=== PATIENT | male | born 1950 | race African-American/Black ===

== ENCOUNTER 2024-04-16 09:07 | Day surgery (SDC) | payer SELFPAY ==
[2024-04-16] MEDS ORDERED: Acetaminophen 500 MG TAB ONE (11:04)
[2024-04-16] MEDS ORDERED: diphenhydrAMINE 25 MG CAP ONE (11:04)
[2024-04-16] MEDS: Acetaminophen 500 MG TAB PO SCH (11:05)
[2024-04-16] MEDS: diphenhydrAMINE 25 MG CAP PO SCH (11:05)
[2024-04-16] MEDS ORDERED: cloNIDine 0.1 MG TAB ONE (15:43)
[2024-04-16] MEDS: cloNIDine 0.1 MG TAB PO SCH (15:44)
[2024-04-16 17:25] VITALS: BP 155/70; TEMP 98.1
== END 2024-04-16 17:33 | disposition home or self-care (01) ==
LOC: ONC/OP 09:07 → EDBD 09:07 → ONC/OP 17:33
PROVIDERS: ATTEND Nurse Practitioner Adult Health
DX: D64.9 Anemia, unspecified (principal); D69.6 Thrombocytopenia, unspecified
CPT/HCPCS: 36430; 86850; 86900; 86901; P9016

== ENCOUNTER 2024-04-28 10:51 | Observation (INO) | payer MEDICARE, OTHER ==
[2024-04-28 12:46] LABS: INR-International Normal Ratio 1.2; Prothrombin Time 14.8 sec (12.0-14.7)
[2024-04-28 12:56] LABS: ALT (SGPT) 12 U/L (8-55); AST (SGOT) 21 U/L (5-34); Albumin 3.5 g/dL (3.4-4.8); Alkaline Phosphatase 63 U/L (40-110); Anion Gap 11 mmol/L (10-20); BUN (Urea Nitrogen) 23 mg/dL (8.4-25.7); Bilirubin, Total 0.8 mg/dL (0.2-1.2); Calc. Creatinine Clearance 0 mL/min (70-130); Calcium 8.4 mg/dL (7.8-10.44); Carbon Dioxide 23 mmol/L (23-31); Chloride 113 mmol/L (98-107); Estimated GFR 50; Globulin 3.3 g/dL (2.4-3.5); Glucose 91 mg/dL (83-110); Potassium 4.2 mmol/L (3.5-5.1); Protein, Total 6.8 g/dL (5.8-8.1); Sodium 143 mmol/L (136-145)
[2024-04-28 13:15] LABS: #Basophils 0.08 10x3/uL (0.0-0.2); %Basophils 0.4 % (0.0-1.0); %Eosinophils 0.8 % (0.0-10.0); %Monocytes 5.1 % (0.0-10.0); %Neutrophils 87.6 % (42.0-75.0); Hematocrit 20.1 % (42.0-52.0); Hemoglobin 6.2 g/dL (14.0-18.0); Mean Corpuscular HGB CONC 30.8 g/dL (32.0-36.0); Mean Corpuscular Volume 93.9 fL (78.0-98.0); Mean Platelet Volume 9.4 fL (7.4-10.4); Platelet Count 1559 10x3/uL (130-400); RBC Distribution Width 23.9 % (11.5-14.5); Red Blood Cell (RBC) Count 2.14 mill/uL (4.70-6.10)
[2024-04-28] MEDS ORDERED: Ondansetron PF 4 MG/2 ML Vial IVP PRN (14:20)
[2024-04-28] MEDS ORDERED: Ondansetron ODT 4 MG TAB PO PRN (14:20)
[2024-04-28] MEDS ORDERED: Lactated Ringer's 1,000 ML IV SCH (14:30)
[2024-04-28 19:20] LABS: Hematocrit 22.1 % (42.0-52.0)
[2024-04-28 19:27] VITALS: BMI 22.3
[2024-04-28] MEDS: Furosemide 20 MG (2 mL) VIAL SLOW IVP SCH (23:00)
[2024-04-28] MEDS: Acetaminophen 325 MG TAB PO PRN (23:00)
[2024-04-28 23:38] LABS: Hematocrit 26.6 % (42.0-52.0)
[2024-04-29 05:02] LABS: Hematocrit 23.6 % (42.0-52.0); Hemoglobin 7.7 g/dL (14.0-18.0); Mean Corpuscular HGB CONC 32.6 g/dL (32.0-36.0); Mean Corpuscular Hemoglobin 29.3 pg (27.0-31.0); Mean Corpuscular Volume 89.7 fL (78.0-98.0); Mean Platelet Volume 8.9 fL (7.4-10.4); Platelet Count 967 10x3/uL (130-400); RBC Distribution Width 21.2 % (11.5-14.5); Red Blood Cell (RBC) Count 2.63 mill/uL (4.70-6.10)
[2024-04-29 05:25] LABS: Anion Gap 13 mmol/L (10-20); BUN (Urea Nitrogen) 21 mg/dL (8.4-25.7); Calc. Creatinine Clearance 42 mL/min (70-130); Calcium 8.1 mg/dL (7.8-10.44); Carbon Dioxide 21 mmol/L (23-31); Chloride 111 mmol/L (98-107); Estimated GFR 45; Glucose 91 mg/dL (83-110); Potassium 3.6 mmol/L (3.5-5.1); Sodium 141 mmol/L (136-145)
[2024-04-29 06:02] LABS: Band 8 % (5-11); Hypochromia SLIGHT = 6-15 cells (100X) (0-5/hpf); Monocytes 12 % (0-10); Neutrophil 80 % (42-75); Plasma Cells 0 % (0-0); Platelet Adequacy Comment Appears Increased; Target Cells SLIGHT = 2-5 cells (100X) (0-1/hpf); Total Cell Count 100
[2024-04-29 12:23] LABS: Hematocrit 28.3 % (42.0-52.0)
[2024-04-29 15:50] VITALS: BP 166/77; TEMP 98
== END 2024-04-29 16:25 | disposition home or self-care (01) ==
LOC: ERS 10:51 → OBS 14:21 → MERGE 14:21 → T4-B 04-29 11:00
PROVIDERS: ADMIT Student in an Organized Health Care Education/Training Program; ATTEND Internal Medicine
DX: C20 Malignant neoplasm of rectum (principal); I12.9 Hypertensive chronic kidney disease with stage 1 through stage 4 chronic kidney disease, or unspecified chronic kidney disease; N18.31 Chronic kidney disease, stage 3a; D63.1 Anemia in chronic kidney disease; C61 Malignant neoplasm of prostate; D75.839 Thrombocytosis, unspecified; D72.829 Elevated white blood cell count, unspecified; D50.0 Iron deficiency anemia secondary to blood loss (chronic); Z90.79 Acquired absence of other genital organ(s); Z98.890 Other specified postprocedural states; Z79.82 Long term (current) use of aspirin; Z79.899 Other long term (current) drug therapy
CPT/HCPCS: 36430; 80048; 80053; 85014 ×2; 85025 ×2; 85610; 86850; 86900; 86901; 86920; 93005; 94760; 96374; 99284; G0378 ×3; J1940; P9016; 36415; 36416

== ENCOUNTER 2024-05-06 09:09 | Day surgery (SDC) | payer OTHER ==
[2024-05-05 14:22] VITALS: BMI 23.0
[2024-05-06] MEDS ORDERED: Midazolam HCl 2 mg/2 ml Vial SLOW IVP SCH (11:30)
[2024-05-06] MEDS ORDERED: Heparin 5,000 UNITS/ML VIAL ONE (12:00)
[2024-05-06] MEDS ORDERED: Bupivacaine 0.25% HCL 30 ML VIAL ONE (12:01)
[2024-05-06] MEDS ORDERED: EPINEPHrine 1 MG/ML VIAL ONE (12:01)
[2024-05-06] MEDS ORDERED: Lidocaine 2% PF 5 ML VIAL ONE (12:01)
[2024-05-06] MEDS ORDERED: Midazolam HCl 2 mg/2 ml Vial ONE (12:12)
[2024-05-06] MEDS ORDERED: PROPOFOL 20 ML ONE (12:15)
[2024-05-06] MEDS ORDERED: Dexamethasone 20 MG/5 ML VIAL ONE (12:15)
[2024-05-06] MEDS ORDERED: Ondansetron PF 4 MG/2 ML Vial ONE (12:15)
[2024-05-06] MEDS ORDERED: fentaNYL PF 100 MCG/2 ML SYRINGE ONE (12:15)
[2024-05-06] MEDS ORDERED: Lidocaine 1% PF 5 ML VIAL ONE (12:15)
[2024-05-06] MEDS ORDERED: CEFAZOLIN 1 GM VIAL ONE ×2 (12:52→12:56)
[2024-05-06] MEDS ORDERED: ePHEDrine Sulfate 50 MG/10 ML VIAL ONE (12:57)
== END 2024-05-06 15:35 | disposition home or self-care (01) ==
LOC: SDC 09:09
PROVIDERS: ATTEND Surgery
PROC: 0JH63WZ Insertion of Totally Implantable Vascular Access Device into Chest Subcutaneous Tissue and Fascia, Percutaneous Approach (ICD-10-PCS; principal; 2024-05-06)
DX: C20 Malignant neoplasm of rectum (principal); I12.9 Hypertensive chronic kidney disease with stage 1 through stage 4 chronic kidney disease, or unspecified chronic kidney disease; N18.30 Chronic kidney disease, stage 3 unspecified; E78.5 Hyperlipidemia, unspecified; C61 Malignant neoplasm of prostate; I25.10 Atherosclerotic heart disease of native coronary artery without angina pectoris; Z90.89 Acquired absence of other organs; Z87.891 Personal history of nicotine dependence
CPT/HCPCS: 71045; C1788; J0171; J0665; J0690; J1100; J1644; J2250; J2405; J2704

== ENCOUNTER 2024-12-09 09:12 | Outpatient (CLI) | payer OTHER ==
[2024-12-09 10:46] LABS: #Basophils Less than 0.03 10x3/uL (0.0-0.2); #Eosinophils Less than 0.03 10x3/uL (0.0-0.7); #Monocytes 0.79 10x3/uL (0.11-0.59); #Neutrophils 6.49 10x3/uL (1.40-6.50); %Basophils 0.1 % (0.0-1.0); %Eosinophils 0.0 % (0.0-10.0); %Lymphocytes 10.8 % (21.0-51.0); %Monocytes 9.6 % (0.0-10.0); %Neutrophils 79.0 % (42.0-75.0); Hematocrit 35.5 % (42.0-52.0); Hemoglobin 11.0 g/dL (14.0-18.0); Mean Corpuscular Hemoglobin 35.1 pg (27.0-31.0); Mean Corpuscular Volume 113.4 fL (78.0-98.0); Platelet Count 179 10x3/uL (130-400); Red Blood Cell (RBC) Count 3.13 mill/uL (4.70-6.10); White Blood Cell (WBC) Count 8.22 10x3/uL (4.8-10.8)
[2024-12-09 11:00] LABS: ALT (SGPT) 23 U/L (Less than 45); AST (SGOT) 39 U/L (11-34); Albumin 4.0 g/dL (3.1-4.5); Alkaline Phosphatase 100 U/L (40-110); Anion Gap 14 mmol/L (10-20); BUN (Urea Nitrogen) 31 mg/dL (8.4-25.7); Bilirubin, Total 0.3 mg/dL (0.3-1.2); Calc. Creatinine Clearance 0 mL/min (70-130); Calcium 9.8 mg/dL (7.8-10.44); Carbon Dioxide 19 mmol/L (23-31); Chloride 112 mmol/L (98-107); Globulin 4.5 g/dL (2.4-3.5); Glucose 103 mg/dL (83-110); Potassium 3.5 mmol/L (3.5-5.1); Sodium 141 mmol/L (136-145)
[2024-12-09 11:30] LABS: Burr Cells SLIGHT = 2-5 cells HPF (0-1); Macrocytosis MODERATE=16-30 cells HPF (0-5); Ovalocytes MODERATE= 6-15 cells HPF (0-1); Platelet Adequacy Comment Platelets Normal; Polychromasia SLIGHT = 2-3 cells HPF (0-2); Schistocytes SLIGHT = 2-5 cells HPF (0-1)
== END 2024-12-09 09:13 | disposition home or self-care (01) ==
LOC: LABBT 09:12
PROVIDERS: ATTEND Surgery
DX: Z01.818 Encounter for other preprocedural examination (principal); C20 Malignant neoplasm of rectum
CPT/HCPCS: 80053; 82378; 85025; 93005; 93010

== ENCOUNTER 2025-03-19 08:06 | Day surgery (SDC) | payer OTHER ==
[2025-03-19 08:33] LABS: #Basophils Less than 0.03 10x3/uL (0.0-0.2); #Eosinophils 0.12 10x3/uL (0.0-0.7); #Monocytes 0.77 10x3/uL (0.11-0.59); #Neutrophils 7.36 10x3/uL (1.40-6.50); %Basophils 0.2 % (0.0-1.0); %Eosinophils 1.3 % (0.0-10.0); %Lymphocytes 9.7 % (21.0-51.0); %Monocytes 8.3 % (0.0-10.0); %Neutrophils 79.7 % (42.0-75.0); Hematocrit 29.8 % (42.0-52.0); Hemoglobin 8.9 g/dL (14.0-18.0); Mean Corpuscular Hemoglobin 27.6 pg (27.0-31.0); Mean Corpuscular Volume 92.3 fL (78.0-98.0); Platelet Count 408 10x3/uL (130-400); Red Blood Cell (RBC) Count 3.23 mill/uL (4.70-6.10); White Blood Cell (WBC) Count 9.24 10x3/uL (4.8-10.8)
[2025-03-19 08:44] LABS: INR-International Normal Ratio 1.1; PTT 43.8 sec (22.9-36.1); Prothrombin Time 14.4 sec (12.0-14.7)
[2025-03-19] MEDS ORDERED: Sodium Bicarbonate 2.5 MEQ/5 ML SDV ONE (09:26)
[2025-03-19] MEDS ORDERED: Lidocaine 1% PF 5 ML VIAL ONE (09:26)
[2025-03-19 10:53] LABS: Anisocytosis SLIGHT = 6-15 cells HPF (0-5); Burr Cells SLIGHT = 2-5 cells HPF (0-1); Giant Platelets 2.5 % (0-5); Macrocytosis SLIGHT = 6-15 cells HPF (0-5); Nucleated RBC (Manual Ct) 1 % (0); Ovalocytes SLIGHT = 2-5 cells HPF (0-1); Platelet Adequacy Comment Platelets Increased; Polychromasia MODERATE = 3-4 cells HPF (0-2); Smudge Cells 5.1 %; Target Cells SLIGHT = 2-5 cells HPF (0-1)
== END 2025-03-19 11:15 | disposition home or self-care (01) ==
LOC: CT 08:06
PROVIDERS: ATTEND Internal Medicine Hematology & Oncology
PROC: 0QB33ZX Excision of Left Pelvic Bone, Percutaneous Approach, Diagnostic (ICD-10-PCS; principal; 2025-03-19)
DX: D75.89 Other specified diseases of blood and blood-forming organs (principal); C20 Malignant neoplasm of rectum; D50.0 Iron deficiency anemia secondary to blood loss (chronic); D47.3 Essential (hemorrhagic) thrombocythemia; I10 Essential (primary) hypertension; E78.5 Hyperlipidemia, unspecified; Z87.891 Personal history of nicotine dependence; Z90.79 Acquired absence of other genital organ(s); Z79.899 Other long term (current) drug therapy
CPT/HCPCS: 20225; 36415; 77002; 77012; 85025; 85097; 85610; 85730; 88184; 88237; 88305; 88311; 88313; 88341; 88342; 88365; C1830